=== PATIENT | male | born 1945 | race Caucasian/White ===

== ENCOUNTER 2022-12-01 19:00 | Emergency (ER) | payer OTHER ==
[2022-12-01 19:49] LABS: INR-International Normal Ratio 1.1; Prothrombin Time 11.4 sec (9.5-12.1)
[2022-12-01 19:56] LABS: ALT (SGPT) 14 U/L (8-55); AST (SGOT) 20 U/L (5-34); Alkaline Phosphatase 75 U/L (40-110); Anion Gap 16 mmol/L (10-20); BUN (Urea Nitrogen) 38 mg/dL (8.4-25.7); Bilirubin, Total 0.6 mg/dL (0.2-1.2); CK (CPK) 125 U/L (30-200); Calc. Creatinine Clearance 0 mL/min (70-130); Calcium 7.1 mg/dL (7.8-10.44); Carbon Dioxide 23 mmol/L (23-31); Chloride 105 mmol/L (98-107); Estimated GFR 48; Globulin 2.9 g/dL (2.4-3.5); Glucose 120 mg/dL (83-110); Protein, Total 6.9 g/dL (5.8-8.1); Sodium 140 mmol/L (136-145)
[2022-12-01 19:58] LABS: #Eosinphils 0.1 10x3/uL (0.0-0.5); #Monocytes 0.9 10x3/uL (0.0-1.1); #Neutrophils 6.1 10x3/uL (1.5-8.4); %Basophils 0.5 % (0.0-2.0); %Eosinophils 0.8 % (0.0-6.0); %Monocytes 10.5 % (0.0-10.0); %Neutrophils 71.3 % (40.0-75.0); Hemoglobin 12.2 g/dL (13.5-17.5); Mean Corpuscular HGB CONC 34.2 g/dL (32.0-36.0); Mean Corpuscular Hemoglobin 34.3 pg (27.0-33.0); Mean Corpuscular Volume 100.3 fl (81.2-95.1); Mean Platelet Volume 12.3 fl (7.4-10.4); Platelet Count 31 10x3/uL (150-450); RBC Distribution Width 14.2 % (11.5-14.5); Red Blood Cell (RBC) Count 3.56 10x6/uL (4.32-5.72); White Blood Cell (WBC) Count 8.6 10x3/uL (3.5-10.5)
[2022-12-01 19:59] LABS: Macrocytosis SLIGHT = 6-15 cells (100X) (0-5/hpf)
[2022-12-01 20:00] LABS: Platelet Adequacy Comment Platelets Decreased
[2022-12-01 20:43] LABS: Bilirubin Neg (Negative); Blood, Urine 250 (Negative); Clarity Cloudy (Clear); Glucose, Urine (Dipstick) Normal (Negative); Ketone, Urine Negative (Negative); Leukocyte Negative (Negative); Nitrite Negative (Negative); Protein, Urine (Dipstick) 30 mg/dl (Neg-Trace); Urobilinogen Normal mg/dL (Less than 2)
[2022-12-01 21:19] LABS: CAUTI Indications for Culture Acute Hematuria; RBC/HPF Greater than 50 HPF (0-3); Squamous Epithelial None Seen HPF (0-3); WBC/HPF None Seen HPF (0-3)
[2022-12-01 21:20] LABS: Bacteria/HPF None Seen HPF (None Seen); Urine Culture Reflex No No
== END 2022-12-02 01:45 ==
LOC: CSHERS 19:00 → EEVIPCON 19:00 → CSHERS 12-02 01:45
DX: D69.6 Thrombocytopenia, unspecified (principal); N17.9 Acute kidney failure, unspecified; E05.90 Thyrotoxicosis, unspecified without thyrotoxic crisis or storm; I13.0 Hypertensive heart and chronic kidney disease with heart failure and stage 1 through stage 4 chronic kidney disease, or unspecified chronic kidney disease; I50.9 Heart failure, unspecified; N18.9 Chronic kidney disease, unspecified; I48.91 Unspecified atrial fibrillation; E03.9 Hypothyroidism, unspecified; Z79.899 Other long term (current) drug therapy; Z79.82 Long term (current) use of aspirin
CPT/HCPCS: 80053; 81001; 82550; 83605; 83735; 84443; 84484; 85025; 85610; 85730; 93005

== ENCOUNTER → 2025-01-09 | Emergency (ER) | payer OTHER ==
[~2025-01-09] MED LIST: Calcium Chloride 1 GM/10 ML Abboject SYRINGE ONE; EPINEPHrine 1 MG/10 ML Abboject SYRINGE ONE; KETAMINE 100 MG/ML (5ML VIAL) ONE; Magnesium 2 GM/50 ML BAG (IN WATER) ONE; Magnesium 5 GM/10 ML Abboject SYRINGE ONE; Metoclopramide HCl 10 MG (2 mL) VIAL ONE; NOREPINEPHRINE 8 MG/250 ML-D5W 250 ML ONE; Ondansetron PF 4 MG/2 ML Vial ONE; PROPOFOL 0 ML ONE; PROPOFOL 200 MG/20 ML VIAL ONE; Pantoprazole 40 MG VIAL ONE; SUCCINYLCHOLINE/SOD CL,ISO/PF 200 MG/10 ML SYRINGE FS ONE; Sodium Bicarb 50 MEQ/50 ML Abboject 8.4% SYRINGE ONE; Vasopressin In 0.9 % NaCl 40 UNIT in Premix 1 BAG IV SCH
[2025-01-09 23:47] LABS: INR-International Normal Ratio 1.1; PTT 21.5 sec (22.0-33.0); Prothrombin Time 11.6 sec (9.5-12.1)
[2025-01-09 23:54] LABS: Troponin I 0.021 ng/mL (< 0.028)
[2025-01-10 00:25] LABS: ALT (SGPT) 18 U/L (Less than 45); AST (SGOT) 29 U/L (11-34); Albumin 3.6 g/dL (3.1-4.5); Alkaline Phosphatase 46 U/L (40-110); Anion Gap 25 mmol/L (10-20); BUN (Urea Nitrogen) 118 mg/dL (8.4-25.7); Bilirubin, Total 2.1 mg/dL (0.3-1.2); Calc. Creatinine Clearance 0 mL/min (70-130); Calcium 7.7 mg/dL (7.8-10.44); Carbon Dioxide 21 mmol/L (23-31); Chloride 91 mmol/L (98-107); Globulin 3.1 g/dL (2.4-3.5); Glucose 114 mg/dL (83-110); Lipase 47 U/L (8-78); Magnesium 2.2 mg/dL (1.6-2.6); Potassium 5.0 mmol/L (3.5-5.1); Sodium 132 mmol/L (136-145)
[2025-01-10 00:36] LABS: Platelet Count 94 10x3/uL (150-450)
[2025-01-10 00:37] LABS: Hematocrit 39.5 % (38.8-50.0); Hemoglobin 13.6 g/dL (13.5-17.5); MDiff Complete? YES; Mean Corpuscular Hemoglobin 34.8 pg (27.0-33.0); Mean Corpuscular Volume 101.0 fL (81.2-95.1); Platelet Adequacy Comment Appears Adequate; RBC Morphology Within Normal Limits; Red Blood Cell (RBC) Count 3.91 10x6/uL (4.32-5.72); White Blood Cell (WBC) Count 6.73 10x3/uL (3.5-10.5)
[2025-01-10 02:04] LABS: ALV-art Gradient 556.400 mmHg (0-20); Actual Bicarbonate (HCO3a) 18.4 mEq/L (22-28); Analyzer IN Cardio CS ER; Base Excess (BEa) -7.6 mEq/L (-2.0 to +3.0); CO2 Tension 38.8 mmHg (35.0-45.0); Calcium, Ionized (arterial) 0.92 mmol/L (1.12-1.30); Critical Notified By: CP.PH; Hematocrit-ABG 42 % (42.0-52.0); Hemoglobin (Hb) 14.3 g/dL (14.0-18.0); O2 Tension (PaO2), arterial 108.1 mmHg (> 60.0); Potassium - ABG Lab 4.54 mmol/L (3.70-5.30); Puncture Site Left Radial artery; RapidComm Collect By CP.PH; pH, Arterial 7.293 (7.35-7.45)
[2025-01-10 04:39] LABS: ALV-art Gradient 613.225 mmHg (0-20); Actual Bicarbonate (HCO3a) 16.9 mEq/L (22-28); Analyzer IN Cardio CS ER; Base Excess (BEa) -9.6 mEq/L (-2.0 to +3.0); CO2 Tension 39.1 mmHg (35.0-45.0); Calcium, Ionized (arterial) 0.90 mmol/L (1.12-1.30); Critical Notified By: CP.PH; Hematocrit-ABG 44 % (42.0-52.0); Hemoglobin (Hb) 14.8 g/dL (14.0-18.0); O2 Tension (PaO2), arterial 50.9 mmHg (> 60.0); Potassium - ABG Lab 4.77 mmol/L (3.70-5.30); Puncture Site Arterial Line; RapidComm Collect By CBN; pH, Arterial 7.253 (7.35-7.45)
== END ==
LOC: EEVIPCON 23:11 → CSHERS 23:11
DX: N17.9 Acute kidney failure, unspecified (principal); J96.91 Respiratory failure, unspecified with hypoxia; K56.609 Unspecified intestinal obstruction, unspecified as to partial versus complete obstruction; J44.9 Chronic obstructive pulmonary disease, unspecified; I13.0 Hypertensive heart and chronic kidney disease with heart failure and stage 1 through stage 4 chronic kidney disease, or unspecified chronic kidney disease; I50.9 Heart failure, unspecified; N18.9 Chronic kidney disease, unspecified; I25.10 Atherosclerotic heart disease of native coronary artery without angina pectoris; E78.5 Hyperlipidemia, unspecified; E03.9 Hypothyroidism, unspecified; Z79.899 Other long term (current) drug therapy; Z79.890 Hormone replacement therapy; Z79.2 Long term (current) use of antibiotics; Z79.52 Long term (current) use of systemic steroids
CPT/HCPCS: 31500; 36415; 36556; 36600; 51702; 71045; 71250; 74018; 74177; 80053; 82805; 83605; 83690; 83735; 84484; 85025; 85610; 85730; 86850; 86900; 86901; 92950; 93005; 94002; 94760; 96365; 96366; 96368; 96375; 96376; J0165; J0282; J2405; J2470; J2543; J2704; J2765; J3010; J3475